=== PATIENT | male | born 1955 | race African-American/Black ===

== ENCOUNTER 2016-08-21 09:05 | Inpatient (IN) | payer OTHER ==
[2016-08-21 09:36] VITALS: BMI 22.1
--- NOTE | 2016-08-21 11:29 | HP ---
COWS - Scale Resting Pulse: 0= [place] 80 or Below Sweatin=Flushed/Facial Moisture Restless Observation: 3= Extraneous Movement Pupil Size: 2= Moderately Dilated Bone or Joint Aches: 2= Severe Diffuse Aches Runny Nose/ Eye Tearin= Runny Nose/Eyes GI Upset > 30mins: 3= Vomiting/Diarrhea Tremor Observation: 2= Slight Tremor Visible Yawning Observation: 2= >3x During Session Anxiety or Irritability: 2=Irritable/Anxious Goose Flesh Skin: 0=Smooth Skin COWS Score: 20 Admission ROS S - HPI Chief Complaint: i need help to stop using heroin Allergies/Adverse Reactions: Allergies Allergy/AdvReac Type Severity Reaction Status Date / Time No Known Allergies Allergy Verified 08/21/16 09:27 History of Present Illness: this 61 years old male with heroin dependence,withdrawal symptom,last detox to 02/23/16 varicose vein left leg 20 years ago htn nicotine dependence longest period of sobriety 2 years Exam Limitations: No Limitations - Ebola screening Have you traveled outside of the country in the last 21 days: No Have you had contact with anyone from an Ebola affected area: No Have you been sick,other than usual withdrawal symptoms: No Do you have a fever: No - Review of Systems Constitutional: Chills, Loss of Appetite, Malaise, Night Sweats, Changes in sleep, Weakness EENT: reports: Tearing, Nose Congestion Respiratory: reports: No Symptoms reported Cardiac: reports: No Symptoms Reported GI: reports: Diarrhea, Nausea, Poor Appetite, Vomiting : reports: No Symptoms Reported Musculoskeletal: reports: Back Pain, Joint Pain, Muscle Pain, Joint Stiffness Integumentary: reports: Dryness Neuro: reports: Headache, Tremors Endocrine: reports: No Symptoms Reported Hematology: reports: No Symptoms Reported Psychiatric: reports: No Sypmtoms Reported, Judgement Intact, Mood/Affect Appropiate, Orientated x3 Other Systems: Reviewed and Negative Patient History - Patient Medical History Hx Anemia: No Hx Asthma: No Hx Chronic Obstructive Pulmonary Disease (COPD): No Hx Cancer: No Hx Cardiac Disorders: No Hx Congestive Heart Failure: No Hx Hypertension: Yes (non compliance last medication 2 months ago) Hx Hypercholesterolemia: No Hx Pacemaker: No HX Cerebrovascular Accident: No Hx Seizures: No Hx Dementia: No Hx Diabetes: No Hx Gastrointestinal Disorders: Yes (acid reflux last med 2 months ago) Hx Liver Disease: No Hx Genitourinary Disorders: No Hx Sexually Transmitted Disorders: No Hx Renal Disease (ESRD): No Hx Thyroid Disease: No Hx Human Immunodeficiency Virus (HIV): No (october- neg) Hx Hepatitis C: No Hx Depression: No Hx Suicide Attempt: No Hx Bipolar Disorder: No Hx Schizophrenia: No Other Medical History: no suicidal,no homcidal - Patient Surgical History Past Surgical History: No Hx Neurologic Surgery: No Hx Cataract Extraction: No Hx Cardiac Surgery: No Hx Lung Surgery: No Hx Breast Surgery: No Hx Breast Biopsy: No Hx Abdominal Surgery: No Hx Appendectomy: No Hx Cholecystectomy: No Hx Genitourinary Surgery: No Hx Section: No Hx Orthopedic Surgery: No Anesthesia Reaction: No - PPD History Previous Implant?: Yes Documented Results: Negative w/proof Implanted On Prior [facility] Admission?: Yes Date: 01/31/16 Results: 0 mm PPD to be Administered?: No - Smoking Cessation Smoking history: Current every day smoker Have you smoked in the past 12 months: Yes Aproximately how many cigarettes per day: 2 Cigars Per Day: 0 Hx Chewing Tobacco Use: No Initiated information on smoking cessation: Yes 'Breaking Loose' booklet given: 08/21/16 - Substance & Tx. History Hx Alcohol Use: No Hx Substance Use: Yes Substance Use Type: Heroin Hx Substance Use Treatment: Yes (last detox [facility] 01/29/16 to 02/02/16) - Substances Abused Heroin Route: Inhalation Frequency: Daily Amount used: 7-8 bags Age of first use: 30 Date of Last Use: 08/20/16 Street methadone Route: Oral Frequency: 1-3 times last 30 days Amount used: 40 mg. Age of first use: 51 Date of Last Use: 08/19/16 Family Disease History - Family Disease History Family Disease History: Diabetes: Brother Admission Physical Exam S - Vital Signs Vital Signs: Vital Signs - 24 hr 08/21/16 09:25 Temperature 97.3 F L Pulse Rate 61 Respiratory 18 Rate Blood Pressure 138/85 - Physical General Appearance: Yes: Moderate Distress, Tremorous, Irritable, Sweating, Anxious HEENTM: Yes: Hearing grossly Normal, ILYA, Nasal Congestion, Rhinorrhea Respiratory: Yes: Lungs Clear, Normal Breath Sounds, No Respiratory Distress Neck: Yes: Within Normal Limits, Supple, Trachea in good position Breast: Yes: Within Normal Limits Cardiology: Yes: Within Normal Limits, Regular Rhythm, Regular Rate, S1, S2 Abdominal: Yes: Within Normal Limits, Normal Bowel Sounds, Non Tender, Flat, Soft Genitourinary: Yes: Within Normal Limits Back: Yes: Muscle Spasm Musculoskeletal: Yes: Back pain, Joint Stiffness, Muscle Pain, Other (varicoe vein of left leg) Extremities: Yes: Within Normal Limits, Normal Range of Motion, Tremors Neurological: Yes: record center coordinator II-XII NML intact, Fully Oriented, Alert, Motor Strength 5/5 Integumentary: Yes: Dry Lymphatic: Yes: Within Normal Limits - Diagnostic (1) HTN (hypertension) Current Visit: No Status: Acute Qualifiers: Hypertension type: essential hypertension Qualified Code(s): I10 - Essential (primary) hypertension (2) Opioid dependence with withdrawal Current Visit: No Status: Acute (3) Varicose vein of leg Current Visit: Yes Status: Acute (4) GERD (gastroesophageal reflux disease) Current Visit: Yes Status: Acute (5) Weight loss Current Visit: Yes Status: Acute (6) Nicotine dependence Current Visit: Yes Status: Acute Cleared for Admission [facility] - Detox or Rehab [facility] Level of Care: Medically Managed Detox Regimen/Protocol: Methadone [facility] Breath Alcohol Content Breath Alcohol Content: 0 Urine Drug Screen - Results Drug Screen Negative: No Urine Drug Screen Results: OPI-Opiates, MTD-Methadone
[2016-08-21] MEDS ORDERED: ACETAMINOPHEN 325 MG TABLET (FP) PO PRN (11:43)
[2016-08-21] MEDS ORDERED: MAG HYDROX/AL HYDROX/SIMETH 30 ML UNIT-DOSE CUP PO PRN (11:43)
[2016-08-21] MEDS ORDERED: IBUPROFEN 400 MG TABLET (FP) PO PRN (11:43)
[2016-08-21] MEDS ORDERED: MAGNESIUM CITRATE 300 ML BOTTLE PO PRN (11:43)
[2016-08-21] MEDS ORDERED: hydrOXYzine PAMOATE 50 MG CAPSULE (FP) PO PRN (11:43)
[2016-08-21] MEDS ORDERED: P-EPHED 60MG/TRIPROLIDI 2.5MG TABLET PO PRN (11:43)
[2016-08-21] MEDS ORDERED: LOPERAMIDE HCL 2 MG CAPSULE PO PRN (11:43)
[2016-08-21] MEDS ORDERED: MENTHOL/PHENOL 1 EACH UD MM PRN (11:43)
[2016-08-21] MEDS ORDERED: guaiFENesin/D-METHORPHAN HB 10 ML UNIT-DOSE CUPS PO PRN (11:43)
[2016-08-21] MEDS ORDERED: MAGNESIUM HYDROX 2400MG/30ML ORAL SUSPENSION 30 ML CUP PO PRN (11:43)
[2016-08-21] MEDS ORDERED: ASPIRIN 81 MG CHEWABLE TABLETS PO SCH (12:15)
[2016-08-21] MEDS ORDERED: METHADONE HCL 10 MG TABLET (FOR DETOX USE ONLY) PO ONE ×2 (12:15→23:00)
[2016-08-21] MEDS ORDERED: RANITIDINE HCL 150 MG TABLET (FP) PO SCH (12:15)
[2016-08-21] MEDS: diazePAM 5 MG TABLET PO PRN ×2 (13:08→22:16)
[2016-08-21] MEDS: LISINOPRIL 10 MG TABLET (FP) PO SCH (13:09)
[2016-08-21] MEDS ORDERED: RANITIDINE HCL 150 MG TABLET (FP) PO ONE (13:30)
[2016-08-21] MEDS ORDERED: ASPIRIN 81 MG CHEWABLE TABLETS PO ONE (13:30)
[2016-08-21 17:18] LABS: URINE APPEARANCE TURBID; URINE BLOOD NEGATIVE (NEGATIVE); URINE COLOR AMBER; URINE GLUCOSE (UA) NEGATIVE (NEGATIVE); URINE KETONE NEGATIVE (NEGATIVE); URINE LEUK ESTERASE NEGATIVE (NEGATIVE); URINE NITRITE NEGATIVE (NEGATIVE); URINE UROBILINOGEN 4.0 E.U/dl E.U./dl (0.2-1.0)
[2016-08-21 17:36] LABS: URINE PROTEIN 1+ (NEGATIVE)
[2016-08-21 19:47] LABS: URINE MUCUS MANY; URINE RBC 1 /hpf (0-3); URINE WBC <1 /hpf (3-5)
[2016-08-21] MEDS: THIAMINE HCL 100 MG TABLET (FP) PO SCH (22:16)
[2016-08-22 10:00] LABS: MCH 28.8 pg (25.7-33.7); MCHC 32.1 g/dl (32.0-35.9); MEAN CELL VOLUME 89.8 fl (80-96); MEAN PLT VOLUME 13.2 fl (7.5-11.1); RDW 16.2 % (11.9-15.9); WHITE BLOOD COUNT 6.5 K/mm3 (4.0-10.0)
[2016-08-22] MEDS ORDERED: METHADONE HCL 10 MG TABLET (FOR DETOX USE ONLY) PO ONE (10:00)
[2016-08-22] MEDS: RANITIDINE HCL 150 MG TABLET (FP) PO SCH (10:58)
[2016-08-22] MEDS: ASPIRIN 81 MG CHEWABLE TABLETS PO SCH (10:58)
[2016-08-22] MEDS: LISINOPRIL 10 MG TABLET (FP) PO SCH (10:58)
[2016-08-22] MEDS: PRENATAL VITAMINS W/ FOLIC ACID TABLET (FP) PO SCH (10:59)
[2016-08-22] MEDS: diazePAM 5 MG TABLET PO PRN ×2 (10:59→22:37)
[2016-08-22 11:19] LABS: ALBUMIN 4.4 g/dl (3.4-5.0); ALK PHOS 128 U/L (45-117); ANION GAP 8 (8-16); BILIRUBIN,TOTAL 1.3 mg/dL (0.2-1.0); CALCIUM 9.4 mg/dL (8.5-10.1); CO2 30 mmol/L (21-32); CREATININE 0.8 mg/dL (0.7-1.3); GLUCOSE,RANDOM 95 mg/dL (74-106); SGOT/AST 38 U/L (15-37); SGPT/ALT 46 U/L (12-78); TOT PROT 8.7 g/dl (6.4-8.2)
--- NOTE | 2016-08-22 11:28 | PN ---
BHS COWS - Scale Resting Pulse: 0= [place] 80 or Below Sweatin=Flushed/Facial Moisture Restless Observation: 1= Difficult to Sit Still Pupil Size: 0= Normal to Room Light Bone or Joint Aches: 2= Severe Diffuse Aches Runny Nose/ Eye Tearin= Nasal Congestion GI Upset > 30mins: 2= Nausea/Diarrhea Tremor Observation of Outstretched Hands: 2= Slight Tremor Visible Yawning Observation: 2= >3x During Session Anxiety or Irritability: 2=Irritable/Anxious Goose Flesh Skin: 3=Piloerection COWS Score: 17 BHS Progress Note (SOAP) Subjective: agitation anxiety diarrhea sweats shakes interrupted sleep Objective: 08/22/16 11:28 Vital Signs Temperature 97.7 F 08/22/16 09:33 Pulse Rate 54 L 08/22/16 09:33 Respiratory Rate 16 08/22/16 09:33 Blood Pressure 149/88 08/22/16 09:33 O2 Sat by Pulse Oximetry (%) Laboratory Tests 08/21/16 08/22/16 13:50 06:00 WBC 6.5 RBC 5.35 Hgb 15.4 D Hct 48.0 D MCV 89.8 MCHC 32.1 RDW 16.2 H MPV 13.2 H D Urine Color Ella Urine Appearance Turbid Urine pH 5.0 D Ur Specific [place] 1.034 Urine Protein 1+ H Urine Glucose (UA) Negative Urine Ketones Negative Urine Blood Negative Urine Nitrite Negative Urine Bilirubin 2.0 Urine Urobilinogen 4.0 e.u/dl Ur Leukocyte Esterase Negative Urine RBC 1 Urine WBC <1 Urine Mucus Many labs pending awake/alert ambulating no acute distress Assessment: 08/22/16 11:28 withdrawal sx Plan: continue detox increase fluids labs pending immodium prn
[2016-08-22 11:51] LABS: PLATELET COUNT 101 K/MM3 (134-434); PLATELET ESTIMATE DECREASED (NORMAL)
--- NOTE | 2016-08-22 17:18 | EKG ---
Test Reason : Blood Pressure : / mmHG Vent. Rate : 055 BPM Atrial Rate : 055 BPM P-R Int : 154 ms QRS Dur : 114 ms QT Int : 450 ms P-R-T Axes : 075 008 -20 degrees QTc Int : 430 ms SINUS BRADYCARDIA RSR' OR QR PATTERN IN V1 SUGGESTS RIGHT VENTRICULAR CONDUCTION DELAY T WAVE ABNORMALITY, CONSIDER INFERIOR ISCHEMIA ABNORMAL ECG NO PREVIOUS ECGS AVAILABLE Confirmed by CIERRA WEBBER MD ([id number]) on 08/22/2016 5:18:03 PM Referred By: Barry Smith Confirmed By:CIERRA WEBBER MD
[2016-08-22] MEDS: diphenhydrAMINE HCL 50 MG CAPSULE PO PRN (22:37)
[2016-08-22] MEDS: THIAMINE HCL 100 MG TABLET (FP) PO SCH (22:37)
[2016-08-23] MEDS ORDERED: METHADONE HCL 5 MG TABLET (FOR DETOX USE ONLY) PO ONE (10:00)
[2016-08-23] MEDS: RANITIDINE HCL 150 MG TABLET (FP) PO SCH (10:25)
[2016-08-23] MEDS: ASPIRIN 81 MG CHEWABLE TABLETS PO SCH (10:25)
[2016-08-23] MEDS: LISINOPRIL 10 MG TABLET (FP) PO SCH (10:25)
[2016-08-23] MEDS: PRENATAL VITAMINS W/ FOLIC ACID TABLET (FP) PO SCH (10:26)
[2016-08-23] MEDS: diazePAM 5 MG TABLET PO PRN ×3 (10:26→22:17)
--- NOTE | 2016-08-23 13:08 | PN ---
BHS COWS - Scale Resting Pulse: 0= [place] 80 or Below Sweatin= Chills/Flushing Restless Observation: 3= Extraneous Movement Pupil Size: 1= Pupils >than Normal Bone or Joint Aches: 2= Severe Diffuse Aches Runny Nose/ Eye Tearin= Runny Nose/Eyes GI Upset > 30mins: 2= Nausea/Diarrhea Tremor Observation of Outstretched Hands: 2= Slight Tremor Visible Yawning Observation: 1= 1-2x During Session Anxiety or Irritability: 2=Irritable/Anxious Goose Flesh Skin: 0=Smooth Skin COWS Score: 16 S Progress Note (SOAP) Subjective: ALERT,IRRITABLE,ANXIOUS,INTERRUPTED SLEEP,PAIN IN THE BODY AND BACK Objective: 08/23/16 13:06 Vital Signs Temperature 97.9 F 08/23/16 10:25 Pulse Rate 79 08/23/16 10:25 Respiratory Rate 18 08/23/16 10:25 Blood Pressure 120/81 08/23/16 10:25 O2 Sat by Pulse Oximetry (%) Laboratory Last Values WBC 6.5 K/mm3 (4.0-10.0) 08/22/16 06:00 RBC 5.35 M/mm3 (4.00-5.60) 08/22/16 06:00 Hgb 15.4 GM/dL (11.7-16.9) D 08/22/16 06:00 Hct 48.0 % (35.4-49) D 08/22/16 06:00 MCV 89.8 fl (80-96) 08/22/16 06:00 MCHC 32.1 g/dl (32.0-35.9) 08/22/16 06:00 RDW 16.2 % (11.9-15.9) H 08/22/16 06:00 Plt Count 101 K/MM3 (134-434) L D 08/22/16 06:00 MPV 13.2 fl (7.5-11.1) H D 08/22/16 06:00 Platelet Estimate Decreased (NORMAL) 08/22/16 06:00 Platelet Comment No clumping noted 08/22/16 06:00 Sodium 143 mmol/L (136-145) 08/22/16 06:00 Potassium 3.9 mmol/L (3.5-5.1) 08/22/16 06:00 Chloride 105 mmol/L (98-107) 08/22/16 06:00 Carbon Dioxide 30 mmol/L (21-32) 08/22/16 06:00 Anion Gap 8 (8-16) 08/22/16 06:00 BUN 15 mg/dL (7-18) 08/22/16 06:00 Creatinine 0.8 mg/dL (0.7-1.3) D 08/22/16 06:00 Creat Clearance w eGFR > 60 (>60) 08/22/16 06:00 Random Glucose 95 mg/dL (74-106) D 08/22/16 06:00 Calcium 9.4 mg/dL (8.5-10.1) 08/22/16 06:00 Total Bilirubin 1.3 mg/dL (0.2-1.0) H D 08/22/16 06:00 AST 38 U/L (15-37) H D 08/22/16 06:00 ALT 46 U/L (12-78) D 08/22/16 06:00 Alkaline Phosphatase 128 U/L (45-117) H D 08/22/16 06:00 Total Protein 8.7 g/dl (6.4-8.2) H D 08/22/16 06:00 Albumin 4.4 g/dl (3.4-5.0) D 08/22/16 06:00 Urine Color Ella 08/21/16 13:50 Urine Appearance Turbid 08/21/16 13:50 Urine pH 5.0 (5.0-8.0) D 08/21/16 13:50 Ur Specific [place] 1.034 (1.001-1.035) 08/21/16 13:50 Urine Protein 1+ (NEGATIVE) H 08/21/16 13:50 Urine Glucose (UA) Negative (NEGATIVE) 08/21/16 13:50 Urine Ketones Negative (NEGATIVE) 08/21/16 13:50 Urine Blood Negative (NEGATIVE) 08/21/16 13:50 Urine Nitrite Negative (NEGATIVE) 08/21/16 13:50 Urine Bilirubin 2.0 (NEGATIVE) 08/21/16 13:50 Urine Urobilinogen 4.0 e.u/dl E.U./dl (0.2-1.0) 08/21/16 13:50 Ur Leukocyte Esterase Negative (NEGATIVE) 08/21/16 13:50 Urine RBC 1 /hpf (0-3) 08/21/16 13:50 Urine WBC <1 /hpf (3-5) 08/21/16 13:50 Urine Mucus Many 08/21/16 13:50 RPR Titer Nonreactive (NONREACTIVE) 08/22/16 06:00 Assessment: 08/23/16 13:07 WITHDRAWAL SYMPTOM Plan: CONTINUE DETOX
[2016-08-23] MEDS: diphenhydrAMINE HCL 50 MG CAPSULE PO PRN (22:17)
[2016-08-23] MEDS: THIAMINE HCL 100 MG TABLET (FP) PO SCH (22:17)
[2016-08-24] MEDS ORDERED: METHADONE HCL 5 MG TABLET (FOR DETOX USE ONLY) PO ONE (10:00)
[2016-08-24] MEDS: ASPIRIN 81 MG CHEWABLE TABLETS PO SCH (10:17)
[2016-08-24] MEDS: RANITIDINE HCL 150 MG TABLET (FP) PO SCH (10:17)
[2016-08-24] MEDS: PRENATAL VITAMINS W/ FOLIC ACID TABLET (FP) PO SCH (10:17)
[2016-08-24] MEDS: LISINOPRIL 10 MG TABLET (FP) PO SCH (10:18)
[2016-08-24] MEDS: diazePAM 5 MG TABLET PO PRN (10:19)
--- NOTE | 2016-08-24 11:31 | PN ---
S Progress Note (SOAP) Subjective: ALERT,IRRITABLE,ANXIOUS,INTERRUPTED SLEEP,PAIN IN THE BODY AND BACK Objective: 08/24/16 11:31 Vital Signs Temperature 97.6 F 08/24/16 09:58 Pulse Rate 61 08/24/16 09:58 Respiratory Rate 18 08/24/16 09:58 Blood Pressure 147/87 08/24/16 09:58 O2 Sat by Pulse Oximetry (%) Assessment: 08/24/16 11:31 WITHDRAWAL SYMPTOM Plan: CONTINUE DETOX
[2016-08-24] MEDS: diphenhydrAMINE HCL 50 MG CAPSULE PO PRN (22:38)
[2016-08-24] MEDS: THIAMINE HCL 100 MG TABLET (FP) PO SCH (22:38)
[2016-08-25] MEDS ORDERED: METHADONE HCL 10 MG TABLET (FOR DETOX USE ONLY) PO ONE (10:00)
[2016-08-25] MEDS: PRENATAL VITAMINS W/ FOLIC ACID TABLET (FP) PO SCH (10:52)
[2016-08-25] MEDS: ASPIRIN 81 MG CHEWABLE TABLETS PO SCH (10:52)
[2016-08-25] MEDS: LISINOPRIL 10 MG TABLET (FP) PO SCH (10:53)
[2016-08-25] MEDS: RANITIDINE HCL 150 MG TABLET (FP) PO SCH (10:53)
--- NOTE | 2016-08-25 15:33 | PN ---
S Progress Note (SOAP) Subjective: Tremor, sweating, interrupted sleep, diarrhea, nausea Objective: 08/25/16 15:30 Last Vital Signs Temp Pulse Resp BP Pulse Ox 98.1 F 76 16 123/66 08/25/16 14:00 08/25/16 14:00 08/25/16 14:00 08/25/16 14:00 Laboratory Tests 08/21/16 08/22/16 08/22/16 13:50 06:00 06:00 WBC 6.5 RBC 5.35 Hgb 15.4 D Hct 48.0 D MCV 89.8 MCHC 32.1 RDW 16.2 H Plt Count 101 L D MPV 13.2 H D Platelet Estimate Decreased Platelet Comment No clumping noted Sodium 143 Potassium 3.9 Chloride 105 Carbon Dioxide 30 Anion Gap 8 BUN 15 Creatinine 0.8 D Creat Clearance w eGFR > 60 Random Glucose 95 D Calcium 9.4 Total Bilirubin 1.3 H D AST 38 H D ALT 46 D Alkaline Phosphatase 128 H D Total Protein 8.7 H D Albumin 4.4 D Urine Color Ella Urine Appearance Turbid Urine pH 5.0 D Ur Specific [place] 1.034 Urine Protein 1+ H Urine Glucose (UA) Negative Urine Ketones Negative Urine Blood Negative Urine Nitrite Negative Urine Bilirubin 2.0 Urine Urobilinogen 4.0 e.u/dl Ur Leukocyte Esterase Negative Urine RBC 1 Urine WBC <1 Urine Mucus Many RPR Titer 08/22/16 06:00 WBC RBC Hgb Hct MCV MCHC RDW Plt Count MPV Platelet Estimate Platelet Comment Sodium Potassium Chloride Carbon Dioxide Anion Gap BUN Creatinine Creat Clearance w eGFR Random Glucose Calcium Total Bilirubin AST ALT Alkaline Phosphatase Total Protein Albumin Urine Color Urine Appearance Urine pH Ur Specific [place] Urine Protein Urine Glucose (UA) Urine Ketones Urine Blood Urine Nitrite Urine Bilirubin Urine Urobilinogen Ur Leukocyte Esterase Urine RBC Urine WBC Urine Mucus RPR Titer Nonreactive Labs noted: UA with 1+ protein, abnormal CBC Assessment: 08/25/16 15:31 Withdrawal symptoms Noted with mild proteinuria and abnormal CBC Plan: Continue detox Proteinuria: encouraged to drink lots of water, repeat UA Abnormal CBC: repeat CBC
[2016-08-25] MEDS: diphenhydrAMINE HCL 50 MG CAPSULE PO PRN (22:56)
[2016-08-25] MEDS: THIAMINE HCL 100 MG TABLET (FP) PO SCH (22:56)
[2016-08-26 05:49] VITALS: BP 107/68; PULSE 60; TEMP 97.9
[2016-08-26] MEDS ORDERED: METHADONE HCL 5 MG TABLET (FOR DETOX USE ONLY) PO ONE (06:00)
--- NOTE | 2016-08-26 08:54 | DS ---
[facility] Detox Discharge Summary Admission Date: 08/21/16 Discharge Date: 08/26/16 - History Present History: Opioid Dependence - Physical Exam Results Vital Signs: Vital Signs Temperature 97.9 F 08/26/16 05:48 Pulse Rate 60 08/26/16 05:48 Respiratory Rate 16 08/26/16 05:48 Blood Pressure 107/68 08/26/16 05:48 O2 Sat by Pulse Oximetry (%) - Treatment Hospital Course: Detox Protocol Followed, Detoxed Safely, Responded well, Discharged Condition Good, Rehab Referral Accepted - Medication Discharge Medications: Ambulatory Orders Aspirin [ASA -] 81 mg PO DAILY 01/29/16 Lisinopril 10 mg PO DAILY 01/29/16 Ranitidine [Zantac -] 150 mg PO DAILY 01/29/16 - Diagnosis (1) GERD (gastroesophageal reflux disease) Current Visit: Yes Status: Chronic Qualifiers: Esophagitis presence: without esophagitis Qualified Code(s): K21.9 - Gastro-esophageal reflux disease without esophagitis (2) Nicotine dependence Current Visit: Yes Status: Chronic Qualifiers: Nicotine product type: cigarettes Substance use status: uncomplicated Qualified Code(s): F17.210 - Nicotine dependence, cigarettes, uncomplicated (3) Varicose vein of leg Current Visit: Yes Status: Chronic (4) Weight loss Current Visit: Yes Status: Acute (5) HTN (hypertension) Current Visit: Yes Status: Chronic Qualifiers: Hypertension type: essential hypertension Qualified Code(s): I10 - Essential (primary) hypertension (6) Opioid dependence with withdrawal Current Visit: Yes Status: Chronic - AMA Did Patient Leave Against Medical Advice: No
[2016-08-26 09:54] LABS: URINE APPEARANCE CLEAR; URINE BILIRUBIN NEGATIVE (NEGATIVE); URINE BLOOD NEGATIVE (NEGATIVE); URINE COLOR YELLOW; URINE GLUCOSE (UA) NEGATIVE (NEGATIVE); URINE KETONE NEGATIVE (NEGATIVE); URINE LEUK ESTERASE NEGATIVE (NEGATIVE); URINE NITRITE NEGATIVE (NEGATIVE); URINE PROTEIN NEGATIVE (NEGATIVE); URINE UROBILINOGEN NEGATIVE E.U./dl (0.2-1.0)
[2016-08-26 09:57] LABS: BASOPHIL 0.1 % (0-2.0); EOSINOPHIL 2.7 % (0-4.5); MCHC 32.3 g/dl (32.0-35.9); MEAN CELL VOLUME 89.8 fl (80-96); MEAN PLT VOLUME 13.8 fl (7.5-11.1); RDW 16.6 % (11.9-15.9); WHITE BLOOD COUNT 7.6 K/mm3 (4.0-10.0)
[2016-08-26 14:24] LABS: PLATELET COMMENT2 NO CLUMPING NOTED; PLATELET COUNT 95 K/MM3 (134-434); PLATELET ESTIMATE DECREASED (NORMAL)
== END 2016-08-26 09:17 | disposition home or self-care (01) | DRG 773 ==
LOC: YASAS 09:05 → Y6N 11:41
PROVIDERS: ADMIT Internal Medicine Addiction Medicine; ATTEND Internal Medicine Addiction Medicine
PROC: HZ2ZZZZ Detoxification Services for Substance Abuse Treatment (ICD-10-PCS; principal; 2016-08-21)
DX: F11.23 Opioid dependence with withdrawal (principal); F17.210 Nicotine dependence, cigarettes, uncomplicated; K21.9 Gastro-esophageal reflux disease without esophagitis; R79.9 Abnormal finding of blood chemistry, unspecified; R80.9 Proteinuria, unspecified; I83.90 Asymptomatic varicose veins of unspecified lower extremity; I10 Essential (primary) hypertension; Z87.898 Personal history of other specified conditions; Z91.14 Patient's other noncompliance with medication regimen
CPT/HCPCS: 36415; 80053; 81003; 81015; 85025; 85027; 86593; 93005; 93010

== ENCOUNTER 2017-09-04 10:53 | Inpatient (IN) | payer OTHER ==
[2017-09-04 11:15] VITALS: BMI 23.8
--- NOTE | 2017-09-04 16:17 | HP ---
COWS - Scale Resting Pulse: 0= [place] 80 or Below Sweatin= Chills/Flushing Restless Observation: 1= Difficult to Sit Still Pupil Size: 1= Pupils >than Normal Bone or Joint Aches: 1= Mild Discomfort Runny Nose/ Eye Tearin= Runny Nose/Eyes GI Upset > 30mins: 1= Stomach Cramp Tremor Observation: 1= Tremor [place], Not Seen Yawning Observation: 1= 1-2x During Session Anxiety or Irritability: 1=Feels Anxious/Irritable Goose Flesh Skin: 3=Piloerection COWS Score: 13 Admission ROS S - HPI Chief Complaint: WITHDRAWAL SYMPTOMS Allergies/Adverse Reactions: Allergies Allergy/AdvReac Type Severity Reaction Status Date / Time No Known Allergies Allergy Verified 09/04/17 14:31 History of Present Illness: 62 Y.O. MAN WITH AN EXTENSIVE HISTORY OF OPIOID DEPENDENCE IS HERE SEEKING DETOX. HE LAST COMPLETED DETOX HERE IN 07/2016. 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 Exam Limitations: No Limitations - Ebola screening Have you traveled outside of the country in the last 21 days: No Have you had contact with anyone from an Ebola affected area: No Have you been sick,other than usual withdrawal symptoms: No Do you have a fever: No - Review of Systems Constitutional: Chills, Diaphoresis, Loss of Appetite, Unintentional Wgt. Loss EENT: reports: Tearing Respiratory: reports: No Symptoms reported Cardiac: reports: No Symptoms Reported GI: reports: Diarrhea, Nausea, Abdominal cramping : reports: No Symptoms Reported Musculoskeletal: reports: Joint Pain (Right knee pain) Integumentary: reports: No Symptoms Reported Neuro: reports: Headache Endocrine: reports: No Symptoms Reported Hematology: reports: No Symptoms Reported Psychiatric: reports: Orientated x3 Other Systems: Reviewed and Negative Patient History - Patient Medical History Hx Anemia: No Hx Asthma: No Hx Chronic Obstructive Pulmonary Disease (COPD): No Hx Cancer: No Hx Cardiac Disorders: No Hx Congestive Heart Failure: No Hx Hypertension: Yes (Not taking medications ) Hx Hypercholesterolemia: No Hx Pacemaker: No HX Cerebrovascular Accident: No Hx Seizures: No Hx Dementia: No Hx Diabetes: No Hx Gastrointestinal Disorders: Yes (acid reflux) Hx Liver Disease: No Hx Genitourinary Disorders: No Hx Sexually Transmitted Disorders: No Hx Renal Disease (ESRD): No Hx Thyroid Disease: No Hx Human Immunodeficiency Virus (HIV): No (october- neg) Hx Hepatitis C: No Hx Depression: No Hx Suicide Attempt: No Hx Bipolar Disorder: No Hx Schizophrenia: No - Patient Surgical History Past Surgical History: No Hx Neurologic Surgery: No Hx Cataract Extraction: No Hx Cardiac Surgery: No Hx Lung Surgery: No Hx Breast Surgery: No Hx Breast Biopsy: No Hx Abdominal Surgery: No Hx Appendectomy: No Hx Cholecystectomy: No Hx Genitourinary Surgery: No Hx Section: No Hx Orthopedic Surgery: No Anesthesia Reaction: No - PPD History Previous Implant?: Yes Documented Results: Negative w/proof Implanted On Prior R Admission?: Yes Date: 01/31/16 Results: 0 mm PPD to be Administered?: Yes - Reproductive History Patient is a Female of Child Bearing Age (11 -55 yrs old): No - Smoking Cessation Smoking history: Current some day smoker Have you smoked in the past 12 months: Yes Aproximately how many cigarettes per day: 3 Cigars Per Day: 0 Hx Chewing Tobacco Use: No Initiated information on smoking cessation: Yes 'Breaking Loose' booklet given: 09/04/17 - Substance & Tx. History Hx Alcohol Use: No Hx Substance Use: Yes Substance Use Type: Heroin Hx Substance Use Treatment: Yes (Detox: 07/2017) - Substances Abused Heroin Route: Inhalation Frequency: Daily Amount used: 6-7 bags Age of first use: 23 Date of Last Use: 09/03/17 street methadone Route: Oral Frequency: 1-3 times last 30 days Amount used: 60 mg. Age of first use: 62 Date of Last Use: 09/01/17 Family Disease History - Family Disease History Family Disease History: Diabetes: Brother Admission Physical Exam [facility] - Vital Signs Vital Signs: Vital Signs - 24 hr 09/04/17 11:10 Temperature 96.3 F L Pulse Rate 65 Respiratory 18 Rate Blood Pressure 131/87 - Physical General Appearance: Yes: Sweating, Anxious HEENTM: Yes: Hearing grossly Normal, Normocephalic, Normal Voice Respiratory: Yes: Chest Non-Tender, Lungs Clear, Normal Breath Sounds, No Respiratory Distress, No Accessory Muscle Use Neck: Yes: No masses,lesions,Nodules, Trachea in good position Breast: Yes: Breast Exam Deferred Cardiology: Yes: Regular Rhythm, Regular Rate Abdominal: Yes: Normal Bowel Sounds, Non Tender, Flat Genitourinary: Yes: Within Normal Limits Back: Yes: Normal Inspection Musculoskeletal: Yes: full range of Motion, Gait Steady, Pelvis Stable Extremities: Yes: Normal Capillary Refill, Normal Inspection, Normal Range of Motion, Non-Tender Neurological: Yes: Fully Oriented, Motor Strength 5/5, Normal Mood/Affect, Normal Response Integumentary: Yes: Normal Color, Dry, Warm Lymphatic: Yes: Within Normal Limits - Diagnostic (1) Weight loss Current Visit: Yes Status: Chronic (2) GERD (gastroesophageal reflux disease) Current Visit: Yes Status: Chronic Qualifiers: Esophagitis presence: without esophagitis Qualified Code(s): K21.9 - Gastro -esophageal reflux disease without esophagitis (3) HTN (hypertension) Current Visit: Yes Status: Chronic Qualifiers: Hypertension type: essential hypertension Qualified Code(s): I10 - Essential (primary) hypertension (4) Nicotine dependence Current Visit: Yes Status: Chronic Qualifiers: Nicotine product type: cigarettes Substance use status: uncomplicated Qualified Code(s): F17.210 - Nicotine dependence, cigarettes, uncomplicated (5) Opioid dependence with withdrawal Current Visit: Yes Status: Chronic Cleared for Admission [facility] - Detox or Rehab [facility] Level of Care: Medically Managed Detox Regimen/Protocol: Methadone [facility] Breath Alcohol Content Breath Alcohol Content: 0 Urine Drug Screen - Results Drug Screen Negative: No Urine Drug Screen Results: OPI-Opiates, BZO-Benzodiazepines, MTD-Methadone
[2017-09-04] MEDS ORDERED: hydrOXYzine PAMOATE 50 MG CAPSULE (FP) PO PRN (16:27)
[2017-09-04] MEDS ORDERED: MENTHOL/PHENOL 1 EACH UD MM PRN (16:27)
[2017-09-04] MEDS ORDERED: P-EPHED 60MG/TRIPROLIDI 2.5MG TABLET PO PRN (16:27)
[2017-09-04] MEDS ORDERED: LOPERAMIDE HCL 2 MG CAPSULE PO PRN (16:27)
[2017-09-04] MEDS ORDERED: MAG HYDROX/AL HYDROX/SIMETH 30 ML UNIT-DOSE CUP PO PRN (16:27)
[2017-09-04] MEDS ORDERED: MAGNESIUM CITRATE 300 ML BOTTLE PO PRN (16:27)
[2017-09-04] MEDS ORDERED: MAGNESIUM HYDROX 2400MG/30ML ORAL SUSPENSION 30 ML CUP PO PRN (16:27)
[2017-09-04] MEDS ORDERED: IBUPROFEN 400 MG TABLET (FP) PO PRN (16:27)
[2017-09-04] MEDS ORDERED: guaiFENesin/D-METHORPHAN HB 10 ML UNIT-DOSE CUPS PO PRN (16:27)
[2017-09-04] MEDS ORDERED: ACETAMINOPHEN 325 MG TABLET (FP) PO PRN (16:27)
[2017-09-04] MEDS ORDERED: METHADONE HCL 10 MG TABLET (FOR DETOX USE ONLY) PO ONE ×2 (17:00→23:00)
[2017-09-04] MEDS: diazePAM 5 MG TABLET PO PRN ×2 (17:36→22:18)
[2017-09-04] MEDS ORDERED: diphenhydrAMINE HCL 50 MG CAPSULE PO ONE (21:00)
[2017-09-04] MEDS: THIAMINE HCL 100 MG TABLET (FP) PO SCH (22:16)
[2017-09-04 23:03] LABS: URINE APPEARANCE TURBID; URINE BILIRUBIN NEGATIVE (<2.0 mg/dL); URINE BLOOD NEGATIVE (NEGATIVE); URINE COLOR YELLOW; URINE GLUCOSE (UA) NEGATIVE (NEGATIVE); URINE KETONE NEGATIVE (NEGATIVE); URINE LEUK ESTERASE NEGATIVE (NEGATIVE); URINE NITRITE NEGATIVE (NEGATIVE); URINE PROTEIN NEGATIVE (NEGATIVE); URINE UROBILINOGEN 4.0 E.U/dl mg/dL (0.2-1.0)
[2017-09-05] MEDS ORDERED: METHADONE HCL 10 MG TABLET (FOR DETOX USE ONLY) PO ONE (10:00)
[2017-09-05] MEDS: diazePAM 5 MG TABLET PO PRN ×3 (10:06→22:04)
[2017-09-05] MEDS: PRENATAL VITAMINS W/ FOLIC ACID TABLET (FP) PO SCH (10:06)
--- NOTE | 2017-09-05 10:08 | EKG ---
Test Reason : Blood Pressure : / mmHG Vent. Rate : 067 BPM Atrial Rate : 067 BPM P-R Int : 150 ms QRS Dur : 076 ms QT Int : 408 ms P-R-T Axes : 078 009 010 degrees QTc Int : 431 ms NORMAL SINUS RHYTHM BIATRIAL ENLARGEMENT LEFT VENTRICULAR HYPERTROPHY ABNORMAL ECG WHEN COMPARED WITH ECG OF 21-AUG-2016 12:15, QRS DURATION HAS DECREASED NONSPECIFIC T WAVE ABNORMALITY HAS REPLACED INVERTED T WAVES IN INFERIOR LEADS Confirmed by LAURENT CM MD ([id number]) on 09/05/2017 10:07:35 AM Referred By: Confirmed By:LAURENT CM MD
[2017-09-05 10:19] LABS: HEMATOCRIT 47.3 % (35.4-49); HEMOGLOBIN 15.5 GM/dL (11.7-16.9); MCH 29.8 pg (25.7-33.7); MCHC 32.7 g/dl (32.0-35.9); PLATELET COUNT 109 K/MM3 (134-434); RDW 15.9 % (11.9-15.9)
[2017-09-05 10:26] LABS: ALBUMIN 3.4 g/dl (3.4-5.0); CALCIUM 8.8 mg/dL (8.5-10.1); CHLORIDE 105 mmol/L (98-107); POTASSIUM 3.7 mmol/L (3.5-5.1); SODIUM 141 mmol/L (136-145)
--- NOTE | 2017-09-05 10:28 | PN ---
BHS COWS - Scale Resting Pulse: 0= [place] 80 or Below Sweatin= Chills/Flushing Restless Observation: 3= Extraneous Movement Pupil Size: 2= Moderately Dilated Bone or Joint Aches: 2= Severe Diffuse Aches Runny Nose/ Eye Tearin= None GI Upset > 30mins: 0= None Tremor Observation of Outstretched Hands: 2= Slight Tremor Visible Yawning Observation: 0= None Anxiety or Irritability: 2=Irritable/Anxious Goose Flesh Skin: 0=Smooth Skin COWS Score: 12 BHS Progress Note (SOAP) Subjective: ANXIETY,SWEATS,FATIGUE. Objective: 09/05/17 11:01 Vital Signs Temperature 96.9 F L 09/05/17 09:09 Pulse Rate 64 09/05/17 09:09 Respiratory Rate 18 09/05/17 09:09 Blood Pressure 127/80 09/05/17 09:09 O2 Sat by Pulse Oximetry (%) Laboratory Last Values WBC 10.0 K/mm3 (4.0-10.0) D 09/05/17 07:00 RBC 5.20 M/mm3 (4.00-5.60) 09/05/17 07:00 Hgb 15.5 GM/dL (11.7-16.9) 09/05/17 07:00 Hct 47.3 % (35.4-49) 09/05/17 07:00 MCV 91.0 fl (80-96) 09/05/17 07:00 MCH 29.8 pg (25.7-33.7) 09/05/17 07:00 MCHC 32.7 g/dl (32.0-35.9) 09/05/17 07:00 RDW 15.9 % (11.9-15.9) 09/05/17 07:00 Plt Count 109 K/MM3 (134-434) L 09/05/17 07:00 MPV 13.0 fl (7.5-11.1) H 09/05/17 07:00 Sodium 141 mmol/L (136-145) 09/05/17 07:00 Potassium 3.7 mmol/L (3.5-5.1) 09/05/17 07:00 Chloride 105 mmol/L (98-107) 09/05/17 07:00 Carbon Dioxide 28 mmol/L (21-32) 09/05/17 07:00 Anion Gap 8 (8-16) 09/05/17 07:00 BUN 15 mg/dL (7-18) 09/05/17 07:00 Creatinine 0.6 mg/dL (0.7-1.3) L D 09/05/17 07:00 Creat Clearance w eGFR > 60 (>60) 09/05/17 07:00 Random Glucose 131 mg/dL (74-106) H D 09/05/17 07:00 Calcium 8.8 mg/dL (8.5-10.1) 09/05/17 07:00 Total Bilirubin 0.7 mg/dL (0.2-1.0) D 09/05/17 07:00 AST 61 U/L (15-37) H D 09/05/17 07:00 ALT 96 U/L (12-78) H D 09/05/17 07:00 Alkaline Phosphatase 108 U/L (45-117) 09/05/17 07:00 Total Protein 7.4 g/dl (6.4-8.2) 09/05/17 07:00 Albumin 3.4 g/dl (3.4-5.0) D 09/05/17 07:00 Urine Color Yellow 09/04/17 17:23 Urine Appearance Turbid 09/04/17 17:23 Urine pH 5.0 (5.0-8.0) 09/04/17 17:23 Ur Specific [place] 1.029 (1.001-1.035) 09/04/17 17:23 Urine Protein Negative (NEGATIVE) 09/04/17 17:23 Urine Glucose (UA) Negative (NEGATIVE) 09/04/17 17:23 Urine Ketones Negative (NEGATIVE) 09/04/17 17:23 Urine Blood Negative (NEGATIVE) 09/04/17 17:23 Urine Nitrite Negative (NEGATIVE) 09/04/17 17:23 Urine Bilirubin Negative (<2.0 mg/dL) 09/04/17 17:23 Urine Urobilinogen 4.0 e.u/dl mg/dL (0.2-1.0) 09/04/17 17:23 Ur Leukocyte Esterase Negative (NEGATIVE) 09/04/17 17:23 Assessment: 09/05/17 11:01 WITHDRAWAL SX Plan: CONTINUE DETOX
[2017-09-05 10:31] LABS: ALK PHOS 108 U/L (45-117); ANION GAP 8 (8-16); BILIRUBIN,TOTAL 0.7 mg/dL (0.2-1.0); BLOOD UREA NITROGEN 15 mg/dL (7-18); CO2 28 mmol/L (21-32); CREATININE 0.6 mg/dL (0.7-1.3); GLUCOSE,RANDOM 131 mg/dL (74-106); SGOT/AST 61 U/L (15-37); SGPT/ALT 96 U/L (12-78); TOT PROT 7.4 g/dl (6.4-8.2)
[2017-09-05] MEDS: THIAMINE HCL 100 MG TABLET (FP) PO SCH (22:04)
[2017-09-06] MEDS: diazePAM 5 MG TABLET PO PRN ×3 (08:51→22:13)
[2017-09-06] MEDS ORDERED: METHADONE HCL 5 MG TABLET (FOR DETOX USE ONLY) PO ONE (10:00)
[2017-09-06] MEDS: PRENATAL VITAMINS W/ FOLIC ACID TABLET (FP) PO SCH (10:06)
--- NOTE | 2017-09-06 12:31 | PN ---
BHS COWS - Scale Resting Pulse: 0= [place] 80 or Below Sweatin= Chills/Flushing Restless Observation: 0= Sits Still Pupil Size: 0= Normal to Room Light Bone or Joint Aches: 2= Severe Diffuse Aches Runny Nose/ Eye Tearin= None GI Upset > 30mins: 0= None Tremor Observation of Outstretched Hands: 2= Slight Tremor Visible Yawning Observation: 2= >3x During Session Anxiety or Irritability: 2=Irritable/Anxious Goose Flesh Skin: 3=Piloerection COWS Score: 12 BHS Progress Note (SOAP) Subjective: Anxiety, Sweating, Fatigue, Body Aches. Objective: PATIENT A & O X 3, OBSERVED AMBULATING ON UNIT. NO ACUTE DISTRESS. 09/06/17 12:32 Vital Signs Temperature 97.0 F L 09/06/17 09:25 Pulse Rate 49 L 09/06/17 09:25 Respiratory Rate 18 09/06/17 09:25 Blood Pressure 115/86 09/06/17 09:25 O2 Sat by Pulse Oximetry (%) Laboratory Tests 09/04/17 09/05/17 09/05/17 17:23 07:00 07:00 WBC 10.0 D RBC 5.20 Hgb 15.5 Hct 47.3 MCV 91.0 MCH 29.8 MCHC 32.7 RDW 15.9 Plt Count 109 L MPV 13.0 H Sodium 141 Potassium 3.7 Chloride 105 Carbon Dioxide 28 Anion Gap 8 BUN 15 Creatinine 0.6 L D Creat Clearance w eGFR > 60 Random Glucose 131 H D Calcium 8.8 Total Bilirubin 0.7 D AST 61 H D ALT 96 H D Alkaline Phosphatase 108 Total Protein 7.4 Albumin 3.4 D Urine Color Yellow Urine Appearance Turbid Urine pH 5.0 Ur Specific [place] 1.029 Urine Protein Negative Urine Glucose (UA) Negative Urine Ketones Negative Urine Blood Negative Urine Nitrite Negative Urine Bilirubin Negative Urine Urobilinogen 4.0 e.u/dl Ur Leukocyte Esterase Negative RPR Titer 09/05/17 07:00 WBC RBC Hgb Hct MCV MCH MCHC RDW Plt Count MPV Sodium Potassium Chloride Carbon Dioxide Anion Gap BUN Creatinine Creat Clearance w eGFR Random Glucose Calcium Total Bilirubin AST ALT Alkaline Phosphatase Total Protein Albumin Urine Color Urine Appearance Urine pH Ur Specific [place] Urine Protein Urine Glucose (UA) Urine Ketones Urine Blood Urine Nitrite Urine Bilirubin Urine Urobilinogen Ur Leukocyte Esterase RPR Titer Nonreactive LABS NOTED. Assessment: 09/06/17 12:32 WITHDRAWAL SYMPTOMS. Plan: CONTINUE DETOX. ENCOURAGE AMBULATION. INCREASE DAILY PO FLUID INTAKE.
[2017-09-06] MEDS: THIAMINE HCL 100 MG TABLET (FP) PO SCH (22:13)
[2017-09-06] MEDS: MELATONIN 5 MG TABLETS PO PRN (23:11)
[2017-09-07] MEDS: diazePAM 5 MG TABLET PO PRN (09:20)
[2017-09-07] MEDS ORDERED: METHADONE HCL 5 MG TABLET (FOR DETOX USE ONLY) PO ONE (10:00)
[2017-09-07] MEDS: PRENATAL VITAMINS W/ FOLIC ACID TABLET (FP) PO SCH (10:05)
--- NOTE | 2017-09-07 12:14 | PN ---
BHS Progress Note (SOAP) Subjective: Sneezing, sweating, interrupted sleep Objective: 09/07/17 12:13 Last Vital Signs Temp Pulse Resp BP Pulse Ox 96.2 F L 46 L 20 140/79 09/07/17 09:10 09/07/17 09:10 09/07/17 09:10 09/07/17 09:10 Laboratory Tests 09/04/17 09/05/17 09/05/17 17:23 07:00 07:00 WBC 10.0 D RBC 5.20 Hgb 15.5 Hct 47.3 MCV 91.0 MCH 29.8 MCHC 32.7 RDW 15.9 Plt Count 109 L MPV 13.0 H Sodium 141 Potassium 3.7 Chloride 105 Carbon Dioxide 28 Anion Gap 8 BUN 15 Creatinine 0.6 L D Creat Clearance w eGFR > 60 Random Glucose 131 H D Calcium 8.8 Total Bilirubin 0.7 D AST 61 H D ALT 96 H D Alkaline Phosphatase 108 Total Protein 7.4 Albumin 3.4 D Urine Color Yellow Urine Appearance Turbid Urine pH 5.0 Ur Specific [place] 1.029 Urine Protein Negative Urine Glucose (UA) Negative Urine Ketones Negative Urine Blood Negative Urine Nitrite Negative Urine Bilirubin Negative Urine Urobilinogen 4.0 e.u/dl Ur Leukocyte Esterase Negative RPR Titer 09/05/17 07:00 WBC RBC Hgb Hct MCV MCH MCHC RDW Plt Count MPV Sodium Potassium Chloride Carbon Dioxide Anion Gap BUN Creatinine Creat Clearance w eGFR Random Glucose Calcium Total Bilirubin AST ALT Alkaline Phosphatase Total Protein Albumin Urine Color Urine Appearance Urine pH Ur Specific [place] Urine Protein Urine Glucose (UA) Urine Ketones Urine Blood Urine Nitrite Urine Bilirubin Urine Urobilinogen Ur Leukocyte Esterase RPR Titer Nonreactive Labs noted Assessment: 09/07/17 12:13 Withdrawal symptoms Plan: Continue detox Encourage to drink more water for hydration
[2017-09-07] MEDS: MELATONIN 5 MG TABLETS PO PRN (22:01)
[2017-09-07] MEDS: THIAMINE HCL 100 MG TABLET (FP) PO SCH (22:01)
[2017-09-08] MEDS ORDERED: METHADONE HCL 10 MG TABLET (FOR DETOX USE ONLY) PO ONE (10:00)
[2017-09-08] MEDS: PRENATAL VITAMINS W/ FOLIC ACID TABLET (FP) PO SCH (10:05)
--- NOTE | 2017-09-08 11:14 | PN ---
BHS Progress Note (SOAP) Subjective: Sweats Sleep disturbance Objective: 09/08/17 11:11 A & O x 3, Not in acute distress Vital Signs Temperature 96.1 F L 09/08/17 09:02 Pulse Rate 52 L 09/08/17 09:02 Respiratory Rate 20 09/08/17 09:02 Blood Pressure 113/65 09/08/17 09:02 O2 Sat by Pulse Oximetry (%) Denies chest pains, dizziness nor related complaints Assessment: Withdrawal sx Plan: continue detox For d/c tomorrow
[2017-09-08] MEDS: THIAMINE HCL 100 MG TABLET (FP) PO SCH (22:08)
[2017-09-08] MEDS: MELATONIN 5 MG TABLETS PO PRN (22:09)
[2017-09-09] MEDS ORDERED: METHADONE HCL 5 MG TABLET (FOR DETOX USE ONLY) PO ONE (06:00)
[2017-09-09 06:07] VITALS: BP 122/80; PULSE 57; TEMP 96.3
--- NOTE | 2017-09-09 14:40 | PN ---
BHS Progress Note (SOAP) Subjective: Patient denies current Detox symptoms and reports that he feels well overall. Objective: PATIENT A & O X 3, OBSERVED AMBULATING ON UNIT. NO ACUTE DISTRESS. 09/09/17 14:38 Vital Signs Temperature 96.3 F L 09/09/17 06:06 Pulse Rate 57 L 09/09/17 06:06 Respiratory Rate 18 09/09/17 06:30 Blood Pressure 122/80 09/09/17 06:06 O2 Sat by Pulse Oximetry (%) Laboratory Tests 09/04/17 09/05/17 09/05/17 17:23 07:00 07:00 WBC 10.0 D RBC 5.20 Hgb 15.5 Hct 47.3 MCV 91.0 MCH 29.8 MCHC 32.7 RDW 15.9 Plt Count 109 L MPV 13.0 H Sodium 141 Potassium 3.7 Chloride 105 Carbon Dioxide 28 Anion Gap 8 BUN 15 Creatinine 0.6 L D Creat Clearance w eGFR > 60 Random Glucose 131 H D Calcium 8.8 Total Bilirubin 0.7 D AST 61 H D ALT 96 H D Alkaline Phosphatase 108 Total Protein 7.4 Albumin 3.4 D Urine Color Yellow Urine Appearance Turbid Urine pH 5.0 Ur Specific [place] 1.029 Urine Protein Negative Urine Glucose (UA) Negative Urine Ketones Negative Urine Blood Negative Urine Nitrite Negative Urine Bilirubin Negative Urine Urobilinogen 4.0 e.u/dl Ur Leukocyte Esterase Negative RPR Titer 09/05/17 07:00 WBC RBC Hgb Hct MCV MCH MCHC RDW Plt Count MPV Sodium Potassium Chloride Carbon Dioxide Anion Gap BUN Creatinine Creat Clearance w eGFR Random Glucose Calcium Total Bilirubin AST ALT Alkaline Phosphatase Total Protein Albumin Urine Color Urine Appearance Urine pH Ur Specific [place] Urine Protein Urine Glucose (UA) Urine Ketones Urine Blood Urine Nitrite Urine Bilirubin Urine Urobilinogen Ur Leukocyte Esterase RPR Titer Nonreactive LABS NOTED. Assessment: 09/09/17 14:39 COMPLETION OF DETOX REGIMEN. 09/09/17 14:39 Plan: PATIENT SCHEDULED FOR DISCHARGE FROM DETOX TODAY. PATIENT WILL GO HOME AND RETURN TO PREVIOUS OUTPATIENT AA MEETINGS.
--- NOTE | 2017-09-09 14:46 | DS ---
[facility] Detox Discharge Summary Admission Date: 09/04/17 Discharge Date: 09/09/17 - History Present History: Opioid Dependence Additional Comments: PATIENT GOING HOME, WILL RETURN TO PREVIOUS OUTPATIENT AA SUPPORT GROUP MEETINGS. PATIENT DECLINED OFFER OF DISCHARGE MEDICATIONS. PATIENT WAS DISCHARGED FROM DETOX UNIT IN STABLE MEDICAL CONDITION. Pertinent Past History: Weight Loss, Nicotine Dependence, GERD, HTN, Vericose Vein of Leg. - Physical Exam Results Vital Signs: Vital Signs Temperature 96.3 F L 09/09/17 06:06 Pulse Rate 57 L 09/09/17 06:06 Respiratory Rate 09/09/17 06:30 Blood Pressure 122/80 09/09/17 06:06 O2 Sat by Pulse Oximetry (%) Pertinent Admission Physical Exam Findings: WITHDRAWAL SYMPTOMS. Laboratory Tests 09/04/17 09/05/17 09/05/17 17:23 07:00 07:00 WBC 10.0 D RBC 5.20 Hgb 15.5 Hct 47.3 MCV 91.0 MCH 29.8 MCHC 32.7 RDW 15.9 Plt Count 109 L MPV 13.0 H Sodium 141 Potassium 3.7 Chloride 105 Carbon Dioxide 28 Anion Gap 8 BUN 15 Creatinine 0.6 L D Creat Clearance w eGFR > 60 Random Glucose 131 H D Calcium 8.8 Total Bilirubin 0.7 D AST 61 H D ALT 96 H D Alkaline Phosphatase 108 Total Protein 7.4 Albumin 3.4 D Urine Color Yellow Urine Appearance Turbid Urine pH 5.0 Ur Specific [place] 1.029 Urine Protein Negative Urine Glucose (UA) Negative Urine Ketones Negative Urine Blood Negative Urine Nitrite Negative Urine Bilirubin Negative Urine Urobilinogen 4.0 e.u/dl Ur Leukocyte Esterase Negative RPR Titer 09/05/17 07:00 WBC RBC Hgb Hct MCV MCH MCHC RDW Plt Count MPV Sodium Potassium Chloride Carbon Dioxide Anion Gap BUN Creatinine Creat Clearance w eGFR Random Glucose Calcium Total Bilirubin AST ALT Alkaline Phosphatase Total Protein Albumin Urine Color Urine Appearance Urine pH Ur Specific [place] Urine Protein Urine Glucose (UA) Urine Ketones Urine Blood Urine Nitrite Urine Bilirubin Urine Urobilinogen Ur Leukocyte Esterase RPR Titer Nonreactive LABS NOTED. - Treatment Hospital Course: Detox Protocol Followed, Detoxed Safely, Responded well, Discharged Condition Good Patient has Accepted a Rehab Referral to: PT. GOING HOME, WILL RETURN TO PREVIOUS OUTPATIENT MEETINGS. - Medication Discharge Medications: Ambulatory Orders Aspirin [ASA -] 81 mg PO DAILY 01/29/16 Lisinopril 10 mg PO DAILY 01/29/16 Ranitidine [Zantac -] 150 mg PO DAILY 01/29/16 - Diagnosis (1) Opioid dependence with withdrawal Status: Acute (2) Weight loss Status: Acute (3) GERD (gastroesophageal reflux disease) Status: Chronic Qualifiers: Esophagitis presence: without esophagitis Qualified Code(s): K21.9 - Gastro -esophageal reflux disease without esophagitis (4) HTN (hypertension) Status: Chronic Qualifiers: Hypertension type: essential hypertension Qualified Code(s): I10 - Essential (primary) hypertension (5) Nicotine dependence Status: Chronic Qualifiers: Nicotine product type: cigarettes Substance use status: in withdrawal Qualified Code(s): F17.213 - Nicotine dependence, cigarettes, with withdrawal (6) Varicose vein of leg Status: Chronic - AMA Did Patient Leave Against Medical Advice: No
== END 2017-09-09 08:40 | disposition home or self-care (01) | DRG 773 ==
LOC: YASAS 10:53 → Y3N 16:24
PROVIDERS: ADMIT Internal Medicine; ATTEND Internal Medicine
PROC: HZ2ZZZZ Detoxification Services for Substance Abuse Treatment (ICD-10-PCS; principal; 2017-09-04)
DX: F11.23 Opioid dependence with withdrawal (principal); F17.210 Nicotine dependence, cigarettes, uncomplicated; I10 Essential (primary) hypertension; K21.9 Gastro-esophageal reflux disease without esophagitis; I83.90 Asymptomatic varicose veins of unspecified lower extremity; R63.4 Abnormal weight loss; Z68.23 Body mass index [BMI] 23.0-23.9, adult
CPT/HCPCS: 36415; 80053; 81003; 85027; 86593; 93005; 93010